=== PATIENT | female | born 1935 | race African-American/Black ===

== ENCOUNTER → 2016-10-24 | Outpatient (CLI) | payer MEDICARE, BC ==
[~2016-10-24] MED LIST: 1-ME1LIQ PO; ASPI81CH CHEW; ASPI81TA82 PO; CALC500T42 PO; ERGO1CAP10 PO; ERGO50000 PO; FENO160T2 PO; HYDR-2768 PO; LISI40TA PO; LORA10TA PO; OMEP20TA39 PO
[2016-10-24 10:21] LABS: MICRO ALBUMIN RANDOM URINE RAW 6.2 MG/L (0.0-30.0)
[2016-10-24 10:30] LABS: ALKALINE PHOSPHATASE 50 U/L (45-117); ALT (GPT) 33 U/L (10-53); ANION GAP 9 MEQ/L (5-15); AST (GOT) 18 U/L (15-37); BICARBONATE 27.4 MEQ/L (21.0-32.0); CHLORIDE 106 MEQ/L (98-107); GLOMERULAR FILTRATION RATE 37 ML/MIN (>89); GLUCOSE,FASTING 108 MG/DL (74-99); POTASSIUM 3.8 MEQ/L (3.5-5.1); SODIUM (NA) 142 MEQ/L (136-145); TOTAL BILIRUBIN ADULT 0.4 MG/DL (0.2-1.0)
[2016-10-24 10:49] LABS: BLOOD UREA NITROGEN 36 MG/DL (7-18)
[2016-10-24 17:36] LABS: HEMOGLOBIN A1b 0.7 %; HEMOGLOBIN Ao 57.1 %; HEMOGLOBIN F 0.8 %; HEMOGLOBIN LA1C 1.5 %; HEMOGLOBIN P3 3.1 %
== END ==
LOC: CLAB 09:30
PROVIDERS: ATTEND Family Medicine
DX: E11.9 Type 2 diabetes mellitus without complications (principal); Z00.00 Encounter for general adult medical examination without abnormal findings; E78.5 Hyperlipidemia, unspecified
CPT/HCPCS: 36415; 80053; 82043; 83036

== ENCOUNTER → 2016-11-22 | Outpatient (CLI) | payer MEDICARE, BC ==
[2016-11-22 10:51] LABS: POTASSIUM 3.8 MEQ/L (3.5-5.1)
== END ==
LOC: CLAB 09:15
PROVIDERS: ATTEND Family Medicine
DX: I12.9 Hypertensive chronic kidney disease with stage 1 through stage 4 chronic kidney disease, or unspecified chronic kidney disease (principal)
CPT/HCPCS: 36415; 80048

== ENCOUNTER 2016-12-01 10:21 | Emergency (ER) | payer MEDICARE, BC ==
[~2016-12-01] VITALS: Ht 167.6 cm; Wt 50.0 kg
[~2016-12-01 10:21] MED LIST changes: -ASPI81CH CHEW; -ERGO1CAP10 PO; -LISI40TA PO
[2016-12-01 10:23] VITALS: BP 170/98; PULSE 104; RESP 18; TEMP 98.2; O2SAT 98
[2016-12-01] MEDS ORDERED: LISI40TA PO (10:46)
[2016-12-01] MEDS ORDERED: CALC500T42 PO (10:46)
[2016-12-01] MEDS ORDERED: ERGO1CAP10 PO (10:46)
[2016-12-01] MEDS ORDERED: ASPI81CH CHEW (10:46)
--- NOTE | 2016-12-01 11:29 | PD ---
HPI Chief Complaint: Laceration/Skin Injury Time Seen by Provider: 10:43 Travel History International Travel<30 days: No Contact w/Intl Traveler<30days: No Traveled to known affect area: No History of Present Illness HPI 81-year-old female presents with a laceration below her right eye after she hit it with a car door by accident. She is not on any blood thinners. She did not black out. She denies pain anywhere else. She denies other concurrent complaints. She states given it kept Bleeding she elected to come in. [facility] Past Medical History Diabetes: Yes Patient Takes Glucophage: No Diminished Hearing: No Hypertension: Yes Tetanus Vaccination: Unknown Influenza Vaccination: Yes Social History Alcohol Use: Yes (OCC GLASS OF WINE) Tobacco Use: No Substance Use: No Allergies-Medications (Allergen,Severity, Reaction): Coded Allergies: Penicillin (Verified Allergy, Severe, swelling and rash, 07/09/16) CRESTOR (Verified Allergy, Mild, patient not sure of reaction she has, ) Evista (Verified Allergy, Mild, patient not sure of reaction she has, 07/09) Lovastatin (Verified Allergy, Mild, patient not sure of reaction she has, 07/09/16) Pravachol (Verified Allergy, Mild, Patient not sure of what reaction, 07/09) Reported Meds & Prescriptions Reported Meds & Active Scripts Active Reported Calcium 500 Mg Tab 500 Mg PO DAILY Lisinopril 40 Mg Tab 40 Mg PO DAILY Aspirin 81 Mg Chew 81 Mg CHEW DAILY Vitamin D (Ergocalciferol) 50,000 Unit Cap 50,000 Units PO MONTHLY Review of Systems Except as stated in HPI: all other systems reviewed are Neg Physical Exam Narrative General: 81 y/o patient in no apparent distress Skin: Infraorbital on right there is a pinpoint area of laceration noted with bleeding without surrounding signs of infection Head: No facial bony tenderness Eyes: pupils are equal, eomi ENT: no septal hematoma NECK: no pain with palpation, nexus criteria negative Cardiovascular: Regular rate and rhythm Respiratory: normal respiratory effort noted, clear to auscultation bilaterally Neuro: awake, alert, sensation and motor grossly intact Data Data Last Documented VS Vital Signs Date Time Temp Pulse Resp B/P Pulse Ox O2 Delivery O2 Flow Rate FiO2 12/01/16 10:30 16 12/01/16 10:23 98.2 104 170/98 98 [facility] Medical Decision Making Medical Screen Exam Complete: Yes Emergency Medical Condition: Yes Medical Record Reviewed: Yes (past history confirmed) Differential Diagnosis Laceration, abrasion, strain Narrative Course Patient agrees to Dermabond repair, all questions answered. Patient knows that follow up is incumbent on them and to return to the emergency room immediately if new or worsening symptoms develop. Patient given strict return precautions, vitals reviewed and are normal, agrees to further workup as an outpatient. Procedures Procedure Narrative LACERATION LOCATION: right infraorbital area LENGTH: pinpoint laceration NUMBER OF STITCHES/JACOB: dermabond REPAIR: The wound was irrigated and explored without evidence of foreign body or neurovascular injury. The wound was closed using dermabond. This was a single layer repair. The patient was advised to keep the area clean and dry. Patient tolerated the procedure well. Diagnosis Primary Impression: Laceration of face Qualified Code: S01.81XA - Laceration of face, initial encounter Patient Instructions: General Instructions Additional Instructions: return as needed, follow with primary in one week for recheck Med/Other Pt SpecificInfo: No Change to Meds Disposition: 01 DISCHARGE HOME Condition: Stable Adelaida Guzman MD Dec 01, 2016 11:29 Adelaida Guzman MD Dec 01, 2016 11:29
== END 2016-12-01 11:51 | disposition home or self-care (01) ==
LOC: NEPA 10:21
DX: S01.81XA Laceration without foreign body of other part of head, initial encounter (principal); E11.9 Type 2 diabetes mellitus without complications; I10 Essential (primary) hypertension; W22.8XXA Striking against or struck by other objects, initial encounter; Y93.9 Activity, unspecified; Y92.9 Unspecified place or not applicable; Y99.8 Other external cause status
CPT/HCPCS: 12011

== ENCOUNTER → 2017-04-11 | Outpatient (CLI) | payer MEDICARE, BC ==
[~2017-04-11] MED LIST changes: -1-ME1LIQ PO; +ASPI81CH CHEW; -ASPI81TA82 PO; +ERGO1CAP10 PO; -ERGO50000 PO; -FENO160T2 PO; -HYDR-2768 PO; +LISI40TA PO; -LORA10TA PO; -OMEP20TA39 PO
[2017-04-11 10:34] LABS: AUTOMATED NEUTROPHIL # 2.4 TH/MM3 (1.8-7.7); BASOPHIL % 0.8 % (0.0-2.0); EOSINOPHIL # 0.1 TH/MM3 (0-0.4); EOSINOPHIL % 1.5 % (0.0-4.0); HEMATOCRIT 41.4 % (35.0-46.0); HEMO FLAGS DIFF FINAL; LYMPH % 41.7 % (9.0-44.0); LYMPHOCYTE # 2.1 TH/MM3 (1.0-4.8); MEAN CELL VOLUME 81.9 FL (80.0-100.0); MEAN CORPUSCULAR HEMOGLOBIN 26.8 PG (27.0-34.0); MEAN CORPUSCULAR HGB CONC 32.7 % (32.0-36.0); PLATELET COUNT 264 TH/MM3 (150-450); RED BLOOD COUNT 5.05 MIL/MM3 (4.00-5.30); RED CELL DISTRIBUTION WIDTH 13.7 % (11.6-17.2)
[2017-04-11 10:41] LABS: BACTERIA, URINE RARE /hpf; BLOOD, URINE NEG (NEG); COMMENT (UR) CULT NOT INDICATED; CULTURE IF INDICATED CULT NOT INDICATED; GLUCOSE,URINE NEG (NEG); KETONE, URINE NEG (NEG); NITRITE,URINE NEG (NEG); SQUAMOUS EPITHELIAL CELL URINE 1 /hpf (0-5); URINE COLOR LIGHT-YELLOW (YELLW/STRAW)
[2017-04-11 11:02] LABS: MICRO ALBUMIN RANDOM URINE RAW 9.7 MG/L (0.0-30.0)
[2017-04-11 11:06] LABS: ANION GAP 7 MEQ/L (5-15); AST (GOT) 20 U/L (15-37); BICARBONATE 26.4 MEQ/L (21.0-32.0); BLOOD UREA NITROGEN 16 MG/DL (7-18); CHLORIDE 107 MEQ/L (98-107); GLOMERULAR FILTRATION RATE 60 ML/MIN (>89); GLUCOSE,FASTING 93 MG/DL (74-99); SODIUM (NA) 140 MEQ/L (136-145)
[2017-04-11 11:07] LABS: ALT (GPT) 32 U/L (10-53)
[2017-04-11 11:17] LABS: ALKALINE PHOSPHATASE 78 U/L (45-117); HDL CHOLESTEROL 71.9 MG/DL (40.0-60.0); LDL CHOLESTEROL 109 MG/DL (0-99); TOTAL BILIRUBIN ADULT 0.3 MG/DL (0.2-1.0)
[2017-04-11 16:23] LABS: HEMOGLOBIN A1b 0.6 %; HEMOGLOBIN Ao 58.1 %; HEMOGLOBIN F 0.8 %; HEMOGLOBIN LA1C 1.3 %; HEMOGLOBIN P3 2.7 %
== END ==
LOC: CLAB 09:48
PROVIDERS: ATTEND Nurse Practitioner Acute Care
DX: E55.9 Vitamin D deficiency, unspecified (principal); N18.3 Chronic kidney disease, stage 3 (moderate); E11.22 Type 2 diabetes mellitus with diabetic chronic kidney disease
CPT/HCPCS: 36415; 80053; 80061; 81001; 82043; 82306; 83036; 83970; 84100; 84443; 85025

== ENCOUNTER → 2017-09-20 | Outpatient (CLI) | payer MEDICARE, BC ==
[~2017-09-20] MED LIST changes: +ASPI-516 CHEW; -ASPI81CH CHEW; +CALC1TAB12 PO; -CALC500T42 PO; -ERGO1CAP10 PO
[2017-09-20 10:34] LABS: ALT (GPT) 34 U/L (10-53); ANION GAP 8 MEQ/L (5-15); AST (GOT) 29 U/L (15-37); BICARBONATE 25.5 MEQ/L (21.0-32.0); BLOOD UREA NITROGEN 17 MG/DL (7-18); CHLORIDE 107 MEQ/L (98-107); GLOMERULAR FILTRATION RATE 59 ML/MIN (>89); GLUCOSE,FASTING 114 MG/DL (74-99); SODIUM (NA) 140 MEQ/L (136-145)
[2017-09-20 10:36] LABS: ALKALINE PHOSPHATASE 83 U/L (45-117); HDL CHOLESTEROL 77.4 MG/DL (40.0-60.0); LDL CHOLESTEROL 133 MG/DL (0-99); TOTAL BILIRUBIN ADULT 0.5 MG/DL (0.2-1.0)
[2017-09-20 14:06] LABS: HEMOGLOBIN A1a 1.4 %; HEMOGLOBIN A1b 0.6 %; HEMOGLOBIN Ao 57.7 %; HEMOGLOBIN F 0.8 %; HEMOGLOBIN LA1C 1.5 %; HEMOGLOBIN P3 2.6 %
== END ==
LOC: CLAB 09:31
PROVIDERS: ATTEND Family Medicine
DX: E11.9 Type 2 diabetes mellitus without complications (principal); E78.00 Pure hypercholesterolemia, unspecified; Z86.39 Personal history of other endocrine, nutritional and metabolic disease
CPT/HCPCS: 36415; 80053; 80061; 83036